=== PATIENT | male | born 1995 | race Caucasian/White ===

== ENCOUNTER 2025-07-09 23:18 | Emergency (ER) | payer OTHER, SELFPAY ==
--- NOTE | ~2025-07-09 | XR_ITS ---
CLINICAL HISTORY: trauma,dog bite --- Additional Notes or Special Instructions: 1st metacarpal Exam: AP, lateral, and oblique views of the right hand. Comparison none provided. Findings: Bony alignment is anatomic. No acute fracture. Joint spaces are well preserved. No radiopaque foreign body. There is soft tissue swelling within the thenar eminence. Impression: Soft tissue swelling of the thenar eminence without fracture or radiopaque foreign body. This document has been electronically signed by: Preston Sunshine MD on 07/10/2025 01:24:48
[2025-07-09 23:23] VITALS: BP 131/79; PULSE 74; RESP 16; TEMP 36.5; O2SAT 98; BMI 27.0
[2025-07-10] MEDS: Diphth,Pertus(ACell),Tet Adult 0.5 ML SYRINGE IM (00:46)
--- NOTE | 2025-07-10 01:07 | ED.GENADULT ---
HPI - General Adult General Chief complaint: Animal Bite Stated complaint: Animal Bite Time Seen by Provider: 07/09/25 23:45 Source: patient, RN notes reviewed and old records reviewed Mode of arrival: ambulatory Limitations: no limitations History of Present Illness ED Provider: Joshua SPENCER narrative: 29-year-old male with no significant past medical history presents for evaluation of a dog bite to his right hand. He was bit by his own dog 30 minutes prior to arrival. He has a small laceration At the base of the right thumb pain He has done and is up-to-date on its vaccines. The patient is not sure last tetanus was pain He has mild pain pain There was no active bleeding at this time Related Data Previous Rx's ?Medication ?Instructions ?Recorded amoxicillin 875 mg-potassium 1 tab PO Q12H #9 tabs 07/10/25 clavulanate 125 mg tablet Allergies Allergy/AdvReac Type Severity Reaction Status Date / Time No Known Allergies Allergy Verified 07/09/25 23:26 Review of Systems Musculoskeletal: Musculoskeletal: Reports arthralgias Integumentary/Breasts: Skin/Breast: Reports wounds PMFSH Social History Social History Advance Directives: No Advance Directives Information Provided: Yes Physical Exam ED Vital Signs: Vital Signs - 24 hr 07/09/25 23:23 Temperature 97.7 F Pulse Rate 74 Respiratory Rate 16 Blood Pressure 131/79 Pulse Oximetry 98 Oxygen Delivery Method Room Air BMI result Body Mass Index 27.0 Const General: healthy appearing, comfortable, no acute distress, alert and awake Nutritional Appearance: well nourished Orientation/consciousness: patient oriented x3 HENMT Head: Yes normocephalic and Yes atraumatic Eyes Eyelids: Yes eyelids normal Conjunctivae: conjunctivae normal Sclerae: sclerae normal Corneas: corneas normal Pupils: Equal, round and reactive pupils present EOM: EOMs intact bilaterally Neck Neck: Yes full ROM Resp Effort & Inspection: normal respiratory effort, able to speak in complete sentences and not labored Skin Other: there was a 1 cm partial-thickness laceration on the palm at the base of the right thumb. There was no active bleeding. There was mild surrounding edema, no erythema, no purulence, no increased warmth. there was no decrease in range of motion to the right thumb with opposition or flexion General skin exam: elasticity normal Neuro General: patient oriented x3 Cranial nerves: Yes Equal, round and reactive pupils present and Yes Bilaterally intact EOM present Cognition (Neuro): normal cognition Extrem Other: Moving all extremities well without any obvious deformities Medications Administered Discontinued Medications Generic Name Dose Route Start Last Admin Trade Name Krishna PRN Reason Stop Dose Admin Amoxicillin/Clavulanate Potassium 875 mg 07/10/25 00:06 07/10/25 00:46 Amoxicillin/Potassium Clav 875 Mg Tablet PO 07/10/25 00:07 875 mg ONCE ONE Administration Diphtheria/Tetanus/Acell Pertussis 0.5 ml 07/10/25 00:28 07/10/25 00:46 Diphth,Pertus(Acell),Tet Adult 0.5 Ml Syringe IM 07/10/25 00:29 0.5 ml .ONCE ONE Administration Medical Decision Making Medical Decision Making MDM Narrative: 29-year-old male presents for evaluation of a dog bite. This was by his own dog was up-to-date on rabies vaccines. We will get an x-ray of the wound. This is a very small wound, does not require any sort of closure as the edges are still well approximated and can not be pulled apart. The patient's tetanus to be updated he will be discharged on Augmentin Differential Diagnosis Differential Diagnoses: The differential diagnosis associated with the presentation includes dog bite Laceration Skin tear Puncture wound Independent Interpretation I performed an independent interpretation of an: Plain X-Ray Interpretation: no obvious fracture of the right hand Discharge Plan Discharge Clinical Impression: Dog bite Patient Disposition: Home, Self-Care Instructions: Animal Bite (ED) Additional Instructions: your x-ray did not show any fracture. Your wound was cleaned and there was no indication for closure. Your tetanus was updated. Take the antibiotics twice daily for 5 days to prevent an infection return for new or worsening symptoms Prescriptions: New amoxicillin-pot clavulanate 875-125 mg tablet 1 tab PO Q12H Qty: 9 0RF Print Language: Georgian
[2025-07-10 01:41] VITALS: BP 108/69; PULSE 63; RESP 18; TEMP 36.7; O2SAT 96
[2025-07-10 01:43] VITALS: BP 108/69; PULSE 63; RESP 18; TEMP 36.7; O2SAT 96
== END 2025-07-10 01:44 | disposition home or self-care (01) ==
PROVIDERS: Emergency Provider Student in an Organized Health Care Education/Training Program
DX: S61.051A Open bite of right thumb without damage to nail, initial encounter (principal); W54.0XXA Bitten by dog, initial encounter; Y93.9 Activity, unspecified; Y92.9 Unspecified place or not applicable; Y99.9 Unspecified external cause status; Z23 Encounter for immunization
CPT/HCPCS: 73130; 90471; 90715; 99283; 99284

== ENCOUNTER → 2025-07-10 00:06 | Outpatient (BNV) | payer OTHER, SELFPAY | PROVIDERS: Emergency Provider Student in an Organized Health Care Education/Training Program; Visit Provider Radiology Diagnostic Radiology | DX: R22.31 Localized swelling, mass and lump, right upper limb (principal); W54.0XXA Bitten by dog, initial encounter | CPT/HCPCS: 73130 ==